=== PATIENT | male | born 2000 | race Caucasian/White ===

== ENCOUNTER 2022-06-07 02:13 | Emergency (ER) | payer SELFPAY ==
[~2022-06-07] VITALS: Ht 185.4 cm; Wt 102.3 kg
[2022-06-07] MEDS ORDERED: AMOXICILLIN 8751 TAB PO (03:50)
[2022-06-07 04:00] VITALS: BP 123/76; PULSE 94; TEMP 98.3
== END 2022-06-07 04:00 | disposition home or self-care (01) ==
LOC: COL.ER 02:13
DX: S62.522B Displaced fracture of distal phalanx of left thumb, initial encounter for open fracture (principal); W23.0XXA Caught, crushed, jammed, or pinched between moving objects, initial encounter